=== PATIENT | female | born 1980 | race Caucasian/White ===

== ENCOUNTER 2019-08-18 13:13 | Emergency (ER) | payer BC, SELFPAY ==
[2019-08-18 13:23] VITALS: BP 151/92; PULSE 86; RESP 14; TEMP 36.8; O2SAT 99
--- NOTE | 2019-08-18 13:30 | ED.GENADULT ---
HPI - General Adult General Chief complaint: Upper Respiratory Infection Stated complaint: sore throat Time Seen by Provider: 08/18/19 13:33 Source: patient and RN notes reviewed Mode of arrival: ambulatory Limitations: no limitations History of Present Illness HPI narrative: This is a 38 years old female presents to the office for an evaluation of sore throat for one week. Associated with intermittent head congestion and sinus drainage. Denies fever, cough, shortness of breath, or chest pain. She tried DayQuil for 2-day and then now she switched over to Sudafed and Mucinex. She said medication has helped but only temporarily. She also reported feeling exhaustion. She reports that she might overdo it because she has been doing a lot of exercise with yard work lately. She does not think she drinks enough water when asked. Related Data Home Medications Medication Instructions Recorded Confirmed gabapentin 400 mg PO TID 08/18/19 08/18/19 omeprazole 40 mg PO DAILY 08/18/19 08/18/19 paroxetine HCl 20 mg PO QAM 08/18/19 08/18/19 quetiapine 50 mg PO HS 08/18/19 08/18/19 Allergies Allergy/AdvReac Type Severity Reaction Status Date / Time No Known Allergies Allergy Verified 08/18/19 13:32 Review of Systems Review of Systems: Narrative: CONSTITUTIONAL: Denies fever or feeling ill except feeling exhaustion EYES: Denies visual changes ENT: Reports congestion, sore throat, otalgia. CARDIOVASCULAR: Denies chest pain, palpitation RESPIRATORY: Denies dyspnea, wheezing, cough GASTROINTESTINAL: Denies abdominal pain, vomiting, diarrhea. Denies decreased appetite. GENITOURINARY: Denies urinary symptoms SKIN: Denies rash MUSCULOSKELETAL: Denies acute back pain NEUROLOGIC: Denies lightheaded PMFSH Past Medical History Medical History (Updated 08/18/19 @ 13:46 by SHARATH López) Anxiety and depression Surgical History Surgical History (Updated 08/18/19 @ 13:34 by SHARATH López) H/O section Social History Social History (Updated 08/18/19 @ 13:34 by SHARATH López) Social History: quite in 2018 Smoking status: Former smoker Comments At time of signature, I agree with nursing past medical, surgical, social and family history. There is no relevant family history pertinent to the presenting complaint. Exam Narrative: Exam Narrative: GENERAL: This is a well-nourished, well-developed patient, in no apparent distress. EARS: External ears normal, auditory canals clear and without drainage, TMs normal without perforation. Hearing grossly intact. NOSE: External nose normal with no obvious nasal discharge, nares without redness, no rhinorrhea. THROAT: Mucous membranes moist, posterior pharynx clear. NECK: Neck supple, non-tender without lymphadenopathy, masses or thyromegaly. CARDIOVASCULAR: Regular rate and rhythm without murmurs, gallops, or rubs. RESPIRATORY: Clear to auscultation. Breath sounds equal bilaterally. No wheezes, rales, or rhonchi. GASTROINTESTINAL: Abdomen soft, non-tender, nondistended. Bowel sounds are active. No hepato-splenomegaly, or palpable masses. No guarding. SKIN: warm, intact with no suspicious lesions or rash, good texture and turgor. NEURO: awake, alert, and oriented to person, place and time. There were no obvious focal neurologic abnormalities. Steady gait [place] Coma Scale Eye Opening: Spontaneous 4 [place] Coma Scale Motor: Obeys Commands 6 [place] Coma Scale Verbal: Oriented 5 Course Vital Signs Vital signs: Vital Signs Temperature 98.3 F 08/18/19 13:23 Pulse Rate 86 08/18/19 13:23 Respiratory Rate 14 08/18/19 13:23 Blood Pressure 151/92 H 08/18/19 13:23 Pulse Oximetry 99 08/18/19 13:23 Temperature 98.3 F 08/18/19 13:23 Pulse Rate 86 08/18/19 13:23 Respiratory Rate 14 08/18/19 13:23 Blood Pressure 151/92 H 08/18/19 13:23 Pulse Oximetry 99 08/18/19 13:23 Medical Decision Making MDM Narrative Medical
== END 2019-08-18 13:55 | disposition home or self-care (01) ==
PROVIDERS: Emergency Provider Nurse Practitioner
DX: J02.9 Acute pharyngitis, unspecified (principal); Z87.891 Personal history of nicotine dependence
CPT/HCPCS: 87081; 87880; 99213; G0463

== ENCOUNTER 2019-09-26 15:46 | Outpatient (CLI) | payer BC, SELFPAY ==
--- NOTE | ~2019-09-26 | US_ITS ---
EXAMINATION: US thyroid DATE: 09/26/2019 16:33 INDICATION: Nontoxic goiter, unspecified. TECHNIQUE: Multiple ultrasound images of the thyroid were obtained. COMPARISON: None. FINDINGS: The right thyroid lobe measures 4.6 x 1.4 x 1.5 cm. The left thyroid lobe measures 4.2 x 1.1 x 1.2 c m. In the right thyroid lobe, there is an 8 mm solid, isoechoic, mccqy-encg-occk nodule with ill-def ined margin without echogenic foci (TI-RADS TR3). In the right thyroid lobe, there is a 14 mm solid, hypoechoic, rdkvc-zkgu-llsw nodule with ill-defined margin without echogenic foci (TR4). In the left thyroid lobe, there is a 14 mm solid, hypoechoic, sgdej-xumw-ofjb nodule with lobulated margin withou t echogenic foci (TR4). In the left thyroid lobe, there is a 7 mm solid, hypoechoic, cikfw-ubhu-nwjx nodule with ill-defined margin without echogenic foci (TR4). In the left thyroid isthmus, there is a 2.6 cm mixed cystic and solid, hypoechoic, edtuh-fwsr-zenh nodule with lobulated margin without echog enic foci (TR4). IMPRESSION: 1. Thyroid nodules. Ultrasound-guided fine-needle aspiration of the 2.6 cm left thyroid nodule is rec ommended. Reviewed, dictated and finalized at location A. IMPRESSION: 1. Thyroid nodules. Ultrasound-guided fine-needle aspiration of the 2.6 cm left thyroid nodule is recommended.
== END 2019-09-26 15:47 | disposition home or self-care (01) ==
LOC: ANHIMG 15:47
PROVIDERS: Visit Provider Nurse Practitioner Family
DX: E04.2 Nontoxic multinodular goiter (principal)
CPT/HCPCS: 76536

== ENCOUNTER 2019-10-09 12:59 | Outpatient (CLI) | payer BC, SELFPAY ==
--- NOTE | ~2019-10-09 | US_ITS ---
EXAMINATION: US FNA w image guidance DATE: 10/09/2019 14:17 INDICATION: Nontoxic single thyroid nodule. TECHNIQUE: The procedure and its benefits, risks, and benefits were discussed with the patient. Risks specifical ly discussed included bleeding. The patient verbalized understanding of the risks and agreed to proce ed. The neck was prepped and draped in the usual sterile manner. 1% lidocaine was used for local ane sthesia. 5 passes were made with a 25G needle into the lesion. Appropriate needle location was docu mented with continuous sonographic guidance. There were no immediate complications. The patient unde rstood to call the ordering physician for results after a week and a half and verbalized that underst anding. FINDINGS: Grayscale ultrasound images demonstrate needles advanced into a 2.6 cm mixed cystic and solid nodule in left thyroid lobe for biopsy. IMPRESSION: 1. Ultrasound-guided fine needle aspiration of a left thyroid nodule. Reviewed, dictated and finalized at location A.
== END 2019-10-09 13:00 | disposition home or self-care (01) ==
PROVIDERS: PCP Family Medicine; Visit Provider Nurse Practitioner Family
DX: E04.1 Nontoxic single thyroid nodule (principal)
CPT/HCPCS: 10005; 88173; 88305